=== PATIENT | male | born 1970 | race American Indian/Alaskan Native ===

== ENCOUNTER 2016-09-21 15:42 | Emergency (ER) | payer SELFPAY ==
--- NOTE | 2016-09-21 16:13 | Event Note ---
Date: 09/21/16 Pt seen in our office today by Dr. Miramontes with c/o palpitations - was found to be in SVT and was tx to ED via EMS. Was given 6mg IV adenosine en route to ED and converted to NSR. Currently stable cardiac status. BMP and thyroid panel pending. Pending labs are WNL and pt remains clinically and hemodynamically stable, pt may discharge home from cardiology standpoint. Recommend discontinuing home on PO lopressor BID. Follow up in our [place] office with Dr. Miramontes on 09/26/2016 @ 2:00PM. Barry GUZMAN NP / DR. COOK
[2016-09-21 17:01] LABS: Mean Corpuscular HGB Conc 30 % (32-34); Mean Corpuscular Volume 73 fl (84-94); Red Blood Count 4.28 M/mm3 (3.65-5.03)
[2016-09-21 17:05] LABS: Hematocrit 31.1 % (35.5-45.6); Hemoglobin 9.3 gm/dl (11.8-15.2); Mean Corpuscular Hemoglobin 22 pg (28-32); Platelet Count 275 K/mm3 (140-440); Red Cell Distribution Width 22.5 % (13.2-15.2)
[2016-09-21 17:12] LABS: Anion Gap 18 mmol/L; Blood Urea Nitrogen 21 mg/dL (9-20); Calcium 9.7 mg/dL (8.4-10.2); Carbon Dioxide 24 mmol/L (22-30); Chloride 100.1 mmol/L (98-107); Glucose 95 mg/dL (75-100); Potassium 4.1 mmol/L (3.6-5.0); Sodium 138 mmol/L (137-145)
--- NOTE | 2016-09-21 17:32 | Emergency Department Report ---
ED General Adult HPI - General Chief complaint: Arrhythmia/Palpitations Stated complaint: SVT/CHEST PAIN Time Seen by Provider: 09/21/16 16:08 Source: patient, EMS (verbal report received from EMS. ems notes not available at time of chart dictation), RN notes reviewed, old records reviewed Mode of arrival: Stretcher Limitations: No Limitations - History of Present Illness Initial comments: This is a 45-year-old male. He is previously unknown to me. 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 The patient is brought to the hospital by EMS after palpitations and arrhythmia. The patient reports that he got into a verbal and heated argument with a family member. He reports that 911 was contacted. EMS reports that the patient's initial rhythm in the field was consistent with supraventricular tachycardia. EMS further reports the patient was given 6 mg of adenosine, which subsequently terminated his SVT. The patient reports no chest pain or shortness of breath at this time. He denies cocaine and sympathomimetic ingestion. He has no leg pain or leg swelling. No shortness of breath. No hematemesis or bright red blood per rectum. He reports that he is back to his baseline. Upon arrival to the ER, the patient was seen by covering cardiology, and they made the following recommendations: 09/21/16 Pt seen in our office today by Dr. Miramontes with c/o palpitations - was found to be in SVT and was tx to ED via EMS. Was given 6mg IV adenosine en route to ED and converted to NSR. Currently stable cardiac status. BMP and thyroid panel pending. Pending labs are WNL and pt remains clinically and hemodynamically stable, pt may discharge home from cardiology standpoint. Recommend discontinuing home on PO lopressor BID. Follow up in our [place] office with Dr. Miramontes on 09/26/2016 @ 2:00PM. Barry GUZMAN NP / DR. COOK -: Sudden Severity scale (0 -10): 0 Consistency: now resolved Improves with: medication Worsens with: other (stress) Associated Symptoms: denies other symptoms - Related Data Previous Rx's Medication Instructions Recorded Last Taken Type Carvedilol [Coreg] 25 mg PO BID #60 tablet 08/23/14 09/07/14 06:45 Rx Docusate Sodium [Colace CAP] 100 mg PO BID #60 capsule 08/23/14 09/06/14 Rx Ferrous Sulfate [Feosol 325 MG tab] 325 mg PO BID #60 tablet 08/23/14 09/07/14 06:45 Rx Furosemide [Lasix TAB] 40 mg PO QDAY #30 tablet 08/23/14 09/07/14 06:45 Rx Lisinopril [Zestril TAB] 40 mg PO QDAY #30 tablet 08/23/14 09/07/14 06:45 Rx Metaxalone [Skelaxin] 800 mg PO TID #30 tablet 03/15/15 Unknown Rx Oxycodone HCl/Acetaminophen 1 each PO Q6HR PRN #20 tablet 03/15/15 Unknown Rx [Percocet 7.5/325 mg] Metoprolol [Lopressor TAB] 25 mg PO BID #60 tablet 09/21/16 Unknown Rx Allergies Allergy/AdvReac Type Severity Reaction Status Date / Time Penicillins Allergy Anaphylaxis Verified 05/16/13 13:29 ED Review of Systems ROS: Stated complaint: SVT/CHEST PAIN Other details as noted in HPI Constitutional: denies: fever Eyes: denies: vision change ENT: denies: epistaxis Cardiovascular: palpitations Gastrointestinal: denies: abdominal pain, nausea, diarrhea Genitourinary: denies: urgency, dysuria Musculoskeletal: denies: back pain, joint swelling, arthralgia Skin: denies: rash, lesions Neurological: denies: headache, weakness, paresthesias Psychiatric: denies: anxiety, depression ED Past Medical Hx - Past Medical History Previous Medical History?: Yes Hx Hypertension: Yes (8YRS ago) Hx Heart Attack/AMI: (enzymes elevated) Hx Congestive Heart Failure: Yes Hx Psychiatric Treatment: Yes (Anxiety) Hx Asthma: Yes Additional medical history: hemorrhoids, GI bleed - Surgical History Past Surgical History?: Yes Additional Surgical History: Right arm surgery.Left knee surgery. Mitral valve repair. - Social History Smoking Status: Former Smoker Substance Use Type: None - Medications Home Medications: Home Medications Medication Instructions Recorded Confirmed Last Taken Type Carvedilol [Coreg] 25 mg PO BID #60 tablet 08/23/14 09/07/14 09/07/14 06:45 Rx Docusate Sodium [Colace CAP] 100 mg PO BID #60 capsule 08/23/14 09/07/14 Rx Ferrous Sulfate [Feosol 325 MG tab] 325 mg PO BID #60 tablet 08/23/14 09/07/14 09/07/14 06:45 Rx Furosemide [Lasix TAB] 40 mg PO QDAY #30 tablet 08/23/14 09/07/14 09/07/14 06: 45 Rx Lisinopril [Zestril TAB] 40 mg PO QDAY #30 tablet 08/23/14 09/07/14 09/07/14 06: 45 Rx Metaxalone [Skelaxin] 800 mg PO TID #30 tablet 03/15/15 Unknown Rx Oxycodone HCl/Acetaminophen 1 each PO Q6HR PRN #20 tablet 03/15/15 Unknown Rx [Percocet 7.5/325 mg] Metoprolol [Lopressor TAB] 25 mg PO BID #60 tablet 09/21/16 Unknown Rx ED Physical Exam - General Limitations: No Limitations General appearance: alert, in no apparent distress - Head Head exam: Present: atraumatic, normocephalic - Eye Eye exam: Present: normal appearance, EOMI. Absent: nystagmus - ENT ENT exam: Present: normal exam, normal orophraynx, mucous membranes moist, normal external ear exam - Neck Neck exam: Present: normal inspection, full ROM. Absent: tenderness, meningismus - Respiratory Respiratory exam: Present: normal lung sounds bilaterally. Absent: respiratory distress, wheezes, rales, rhonchi, stridor, decreased breath sounds - Cardiovascular Cardiovascular Exam: Present: regular rate, normal rhythm, normal heart sounds. Absent: bradycardia, tachycardia, irregular rhythm, systolic murmur, diastolic murmur, rubs, gallop - GI/Abdominal GI/Abdominal exam: Present: soft, normal bowel sounds. Absent: distended, tenderness, guarding, rebound, rigid, pulsatile mass - Rectal Rectal exam: Present: deferred - Extremities Exam Extremities exam: Present: normal inspection, full ROM, normal capillary refill. Absent: tenderness, pedal edema, joint swelling, calf tenderness - Back Exam Back exam: Present: normal inspection, full ROM. Absent: tenderness, CVA tenderness (R), CVA tenderness (L), muscle spasm, paraspinal tenderness, vertebral tenderness - Neurological Exam Neurological exam: Present: alert, oriented X3, normal gait, other (Extraocular movements intact. Tongue midline. No facial droop. Facial sensation intact to light touch in the V1, V2, V3 distribution bilaterally. 5 and 5 strength in 4 extremities.. Sensation is intact to light touch in 4 extremities.). Absent : motor sensory deficit - Psychiatric Psychiatric exam: Present: normal affect, normal mood - Skin Skin exam: Present: warm, dry, intact, normal color. Absent: rash ED Course Vital Signs 09/21/16 09/21/16 09/21/16 16:00 16:07 16:19 Temperature 98.5 F Pulse Rate 92 H 92 H Respiratory 18 16 18 Rate Blood Pressure 140/92 O2 Sat by Pulse 100 100 100 Oximetry 09/21/16 09/21/16 17:00 18:00 Temperature Pulse Rate 87 85 Respiratory 13 23 Rate Blood Pressure 135/84 146/89 O2 Sat by Pulse 100 100 Oximetry - Reevaluation(s) Reevaluation #1: 09/21/16 17:32 Differential diagnosis: Arrhythmia, electrolyte derangement, supraventricular tachycardia, now resolved Assessment and plan: 45-year-old male with resolved supraventricular tachycardia , which was in the context of emotional stress. He has no chest pain or shortness of breath. Has mild chronic anemia which does not appear to be new, worsening or different. His electrolytes are unremarkable, and his vital signs have remained stable within the emergency room. He will be started on metoprolol, 25 mg twice daily, instructed to follow up with outpatient cardiology. Return precautions are extensively reviewed. ED Medical Decision Making - Lab Data Result diagrams: 09/21/16 16:22 09/21/16 16:22 Vital Signs 09/21/16 09/21/16 09/21/16 16:00 16:07 16:19 Temperature 98.5 F Pulse Rate 92 H 92 H Respiratory 18 16 18 Rate Blood Pressure 140/92 O2 Sat by Pulse 100 100 100 Oximetry 09/21/16 17:00 Temperature Pulse Rate 87 Respiratory 13 Rate Blood Pressure 135/84 O2 Sat by Pulse 100 Oximetry Lab Results 09/21/16 09/21/16 09/21/16 Range/Units 16:22 16:22 16:22 WBC 8.0 (4.5-11.0) K/mm3 RBC 4.28 (3.65-5.03) M/mm3 Hgb 9.3 L (11.8-15.2) gm/dl Hct 31.1 L (35.5-45.6) % MCV 73 L (84-94) fl MCH 22 L (28-32) pg MCHC 30 L (32-34) % RDW 22.5 H (13.2-15.2) % Plt Count 275 (140-440) K/mm3 Sodium 138 (137-145) mmol/L Potassium 4.1 (3.6-5.0) mmol/L Chloride 100.1 (98-107) mmol/L Carbon Dioxide 24 (22-30) mmol/L Anion Gap 18 mmol/L BUN 21 H (9-20) mg/dL Creatinine 1.0 (0.8-1.5) mg/dL Estimated GFR > 60 ml/min BUN/Creatinine Ratio 21.00 % Glucose 95 (75-100) mg/dL Calcium 9.7 (8.4-10.2) mg/dL Magnesium 2.0 (1.7-2.3) mg/dL TSH 2.150 (0.270-4.200) mlU/mL - EKG Data When compared to previous EKG there are: no significant change 09/21/16 17:31 normal sinus, 91 bpm, normal axis, first-degree AV block, not consistent with STEMI, appears essentially unchanged from prior EKG from 2014. Critical care attestation.: If time is entered above; I have spent that time in minutes in the direct care of this critically ill patient, excluding procedure time. ED Disposition Clinical Impression: SVT (supraventricular tachycardia) Disposition: DISCHARGED TO HOME OR SELFCARE Is pt being admited?: No Does the pt Need Aspirin: No Condition: Good Instructions: Supraventricular Tachycardia (ED), Palpitations (ED) Additional Instructions: Take the medications as directed. Follow-up with your tactical debriefer officer as directed. You have an appointment with the tactical debriefer officer at the following time and date: [place] office with Dr. Miramontes on 09/26/2016 @ 2:00PM. 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 Please return to the ER right away with fevers or chills, chest pain or shortness of breath, intractable nausea or vomiting, inability to tolerate liquid feeds, new, worsening or different symptoms. Avoid consumption of caffeinated foods, and stimulants. Prescriptions: Metoprolol [Lopressor TAB] 25 mg PO BID #60 tablet Referrals: PRIMARY CAREMD [Primary Care Provider] - 3-5 Days DREW MORELOS MD [Staff Physician] - 3-5 Days
[2016-09-21 18:19] VITALS: BP 146/89
== END 2016-09-21 18:36 | disposition home or self-care (01) ==
LOC: ED 15:42
DX: I47.1 Supraventricular tachycardia (principal); I10 Essential (primary) hypertension; I25.2 Old myocardial infarction; I50.9 Heart failure, unspecified; F41.9 Anxiety disorder, unspecified; J45.909 Unspecified asthma, uncomplicated; Z87.891 Personal history of nicotine dependence; Z88.0 Allergy status to penicillin
CPT/HCPCS: 36415; 80048; 83735; 84443; 85027; 93005; 93010; 99284

== ENCOUNTER 2017-09-03 23:16 | Emergency (ER) | payer SELFPAY ==
[2017-09-04 00:04] VITALS: BP 165/93
[2017-09-04] MEDS ORDERED: ASPIRIN PO ONE (00:06)
== END 2017-09-04 00:20 | disposition left against medical advice (07) ==
LOC: ED 23:16
DX: R07.9 Chest pain, unspecified (principal); Z53.21 Procedure and treatment not carried out due to patient leaving prior to being seen by health care provider
CPT/HCPCS: 93005; 93010

== ENCOUNTER 2019-02-27 10:27 | Day surgery (SDC) | payer BC ==
[2019-02-27] MEDS ORDERED: LIDOCAINE MPF (2%) 20 MG/1 ML VIAL 5 ML ONE (11:00)
[2019-02-27] MEDS ORDERED: SODIUM CHLORIDE 0.9% 1000 ML 1,000 ML ONE (11:08)
[2019-02-27] MEDS ORDERED: SODIUM CHLORIDE 0.9% 1000 ML 1,000 ML IV SCH (11:11)
[2019-02-27] MEDS ORDERED: PROPOFOL 200 MG/20 ML VIAL IV ONE ×2 (11:37)
--- NOTE | 2019-02-27 11:49 | Anesthesia Consultation ---
Anesthesia Consult and Med Hx Date of service: 02/27/19 - Airway Anesthetic Teeth Evaluation: Good ROM Head & Neck: Adequate Mental/Hyoid Distance: Adequate Mallampati Class: Class II Intubation Access Assessment: Probably Good - Pulmonary Exam CTA: Yes - Cardiac Exam Cardiac Exam: RRR - Pre-Operative Health Status ASA Pre-Surgery Classification: ASA2 Proposed Anesthetic Plan: MAC - Pulmonary Hx Smoking: No Hx Respiratory Symptoms: No - Cardiovascular System Hx Hypertension: Yes (took antihypertensives today) Hx Heart Attack/AMI: No Hx Percutaneous Transluminal Coronary Angioplasty (PTCA): No Hx Valvular Heart Disease: Yes (s/p MVR; normal EF and valve function on recent TTE) - Central Nervous System CVA: No - Gastrointestinal Hx Gastroesophageal Reflux Disease: No - Endocrine Hx Renal Disease: No Hx Liver Disease: No Hx Insulin Dependent Diabetes: No Hx Non-Insulin Dependent Diabetes: No Hx Thyroid Disease: No - Hematic Hx Anemia: Yes (remote hx transfusion)
--- NOTE | 2019-02-27 11:49 | Anesthesia Day of Surgery ---
Anesthesia Day of Surgery - Day of Surgery Patient Examined: Yes Patient H&P Reviewed: Yes Patient is NPO: Yes
--- NOTE | 2019-02-27 12:07 | Procedure Note ---
Date of procedure: 02/27/19 Pre-op diagnosis: Anemia/H/O Prostheric Mitral Valve Post-op diagnosis: other (Mild to Moderate Distal Erosive Esophagitis/Gastric Erosion (Antrum)/Gastritis/ R/O Celiac Disease) Procedure: EGD with Biopsy Anesthesia: MAC Estimated blood loss: minimal Pathology: list Specimen disposition: to lab Condition: stable Disposition: same day (Treat with PPI. Avoid aspirin and NSAID for 2 days. Check labs and follow up in 1 to 2 weeks ([phone]).)
[2019-02-27] MEDS ORDERED: WATER FOR IRRIG STERILE 250 ML BOTTLE IR ONE (12:23)
--- NOTE | 2019-02-27 12:24 | Operative Report ---
PROCEDURE: EGD with biopsy. INDICATIONS: This is a 48-year-old -[place] gentleman with an underlying history of prosthetic mitral valve, who has been noted to be anemic. He states he had a colonoscopy done a couple of years ago, which was at that time were unremarkable. EGD was being done to make sure there is not any significant upper GI pathology present. DESCRIPTION OF PROCEDURE: The procedure was done after getting informed consent with MAC anesthesia. The patient was prophylactically given Levaquin 500 mg IV as prophylaxis since he has a history of allergy to PENICILLIN. Instrument was passed through the hypopharynx into the esophagus, which showed some mild to moderate distal erosive esophagitis. Biopsy was done from the distal esophagus. Stomach showed gastritis and gastric erosions, especially most pronounced in the antrum. Biopsy was done from the antrum as well as from the gastric body and angular incisura to rule out for H. pylori and atrophic gastritis. The pylorus was patent. The duodenum in the first and second portion appeared normal. Biopsy was done from the second part of the duodenum to rule out for possible celiac disease. There was minimal bleeding from the biopsy sites. No complications associated with the procedure. ASSESSMENT: Anemia, history of prosthetic heart valve, mild to moderate erosive esophagitis, gastritis, gastric erosion, rule out celiac disease. The patient will be asked to avoid aspirin and aspirin-related products and anticoagulants for the next 2 days, treated with PPI. Blood level for vitamin B12, folate, ferritin and TIBC will also be done and the patient will be asked to follow up in the office in 1-2 weeks' time. The procedure was done in the GI lab with assistance of the GI lab team, which included Ariana DIAZ and Ghulma beard and with assistance of anesthesia. PLAN: The patient will be asked to follow up in the office in 1-2 weeks' time. JOB# [id number] MARZENA/HINA
[2019-02-27 12:44] VITALS: BP 124/76
[2019-02-27 13:32] LABS: Iron 52 ug/dL (49-181); Total Iron Binding Capacity 328 mcg/dL (250-450)
== END 2019-02-27 12:58 | disposition home or self-care (01) ==
LOC: GIO 10:27
DX: D50.9 Iron deficiency anemia, unspecified (principal); K20.9 Esophagitis, unspecified; K29.50 Unspecified chronic gastritis without bleeding; B96.81 Helicobacter pylori [H. pylori] as the cause of diseases classified elsewhere; K31.89 Other diseases of stomach and duodenum; I11.0 Hypertensive heart disease with heart failure; I50.9 Heart failure, unspecified; Z95.2 Presence of prosthetic heart valve; Z80.8 Family history of malignant neoplasm of other organs or systems; Z79.899 Other long term (current) drug therapy; Z88.0 Allergy status to penicillin; Z79.82 Long term (current) use of aspirin; Z98.890 Other specified postprocedural states; Z82.49 Family history of ischemic heart disease and other diseases of the circulatory system
CPT/HCPCS: 36415; 43239; 82607; 82728; 82747; 83550; 88305; 88342; J1956; J2704; J7030